=== PATIENT | female | born 1965 | race Caucasian/White ===

== ENCOUNTER 2017-03-16 22:17 | Emergency (ER) | payer OTHER ==
[~2017-03-16] VITALS: Ht 182.9 cm; Wt 66.4 kg
[~2017-03-16 22:17] MED LIST: NO MEDS; NOHOMEMEDS
[2017-03-16 22:19] VITALS: BP 123/88
== END 2017-03-17 00:14 | disposition home or self-care (01) ==
LOC: EME 22:17
PROC: 2W3EX1Z Immobilization of Right Hand using Splint (ICD-10-PCS; principal; 2017-03-16)
DX: S62.306A Unspecified fracture of fifth metacarpal bone, right hand, initial encounter for closed fracture (principal); W22.09XA Striking against other stationary object, initial encounter
CPT/HCPCS: 73130; 99281; 99284

== ENCOUNTER 2017-04-19 17:26 | Emergency (ER) | payer OTHER ==
[~2017-04-19] VITALS: Ht 185.4 cm; Wt 67.3 kg
[2017-04-19 19:40] VITALS: BP 141/98
== END 2017-04-19 19:40 | disposition home or self-care (01) ==
LOC: EME 17:26
PROC: 2W3DX1Z Immobilization of Left Lower Arm using Splint (ICD-10-PCS; principal; 2017-04-19)
DX: S62.102A Fracture of unspecified carpal bone, left wrist, initial encounter for closed fracture (principal); S00.93XA Contusion of unspecified part of head, initial encounter; W14.XXXA Fall from tree, initial encounter; Y93.9 Activity, unspecified; Y92.9 Unspecified place or not applicable; Y99.9 Unspecified external cause status
CPT/HCPCS: 73110; 99281; 99283